=== PATIENT | male | born 2000 | race Caucasian/White ===

== ENCOUNTER 2019-05-29 08:18 | Day surgery (SDC) | payer BC ==
[2019-05-29] VITALS (10 sets, daily range): BP systolic 98–115; BP diastolic 57–71; PULSE 54–78; RESP 10–18; Ht 180.3 cm; Wt 78.9 kg
[~2019-05-29] VITALS: Ht 180.3 cm; Wt 78.9 kg
[~2019-05-29 08:18] MED LIST: CEFAZOLIN 1 GM INJ ONE
[2019-05-29] MEDS ORDERED: FENTAnyl 50 MCG/ML VIAL IV PRN ×3 (09:00)
[2019-05-29] MEDS ORDERED: FENTAnyl 50 MCG/ML VIAL ONE (09:00)
[2019-05-29] MEDS ORDERED: PROPOFOL 20 ML ONE (09:00)
[2019-05-29] MEDS ORDERED: ALBUTEROL 0.083% (NEB) 2.5 MG/3 ML AMP HHN PRN (09:00)
[2019-05-29] MEDS ORDERED: MIDAZOLAM 1 MG/ML 2 ML INJ ONE (09:00)
[2019-05-29] MEDS ORDERED: MEPERIDINE 25 MG INJ IV PRN (09:00)
[2019-05-29] MEDS ORDERED: OXYCODONE/ACETAMINOPHEN (5/325) TAB PO PRN ×2 (09:00)
[2019-05-29] MEDS ORDERED: LIDOCAINE 2% (SDV) 5 ML INJ ONE (09:00)
[2019-05-29] MEDS ORDERED: ONDANSETRON 4 MG INJ IV PRN (09:00)
[2019-05-29] MEDS ORDERED: DEXAMETHASONE 4 MG/ML 5 ML INJ ONE (09:34)
[2019-05-29] MEDS ORDERED: ONDANSETRON 4 MG INJ ONE (09:34)
[2019-05-29] MEDS ORDERED: BUPIVACAINE 0.5%/EPI (SDV) 10 ML INJ ONE (09:34)
[2019-05-29] MEDS ORDERED: METOCLOPRAMIDE 10 MG INJ ONE (09:34)
[2019-05-29] MEDS ORDERED: FAMOTIDINE 20 MG INJ ONE (09:35)
[2019-05-29] MEDS ORDERED: IBUPROFEN 600 MG TAB PO PRN (11:30)
== END 2019-05-29 11:52 | disposition home or self-care (01) ==
LOC: SDS 08:18
PROVIDERS: ATTEND Surgery
DX: L72.0 Epidermal cyst (principal)
CPT/HCPCS: 11441; 88307; J1100; J2250; J2405; J2765; J3010; Z7512; Z7610; J0690